=== PATIENT | male | born 1980 | race Caucasian/White ===

== ENCOUNTER → 2023-02-20 13:08 | Outpatient (BNVA) | payer OTHER, SELFPAY | PROVIDERS: Visit Provider Physician Assistant Medical | DX: T26.92XA Corrosion of left eye and adnexa, part unspecified, initial encounter (principal); X58.XXXA Exposure to other specified factors, initial encounter | CPT/HCPCS: 92002; 99203 ==

== ENCOUNTER → 2023-02-21 07:47 | Outpatient (BNVA) | payer OTHER, SELFPAY | PROVIDERS: Visit Provider Physician Assistant Medical | DX: T26.92XA Corrosion of left eye and adnexa, part unspecified, initial encounter (principal); T56.2X1A Toxic effect of chromium and its compounds, accidental (unintentional), initial encounter; T54.2X1A Toxic effect of corrosive acids and acid-like substances, accidental (unintentional), initial encounter | CPT/HCPCS: 99213 ==